=== PATIENT | male | born 1990 | race Caucasian/White ===

== ENCOUNTER 2017-04-06 11:22 | Emergency (ER) | payer OTHER ==
[2017-04-06 11:45] VITALS: RESP 16; TEMP 98.6
[2017-04-06] MEDS ORDERED: LORazepam 1 MG TAB PO ONE (13:30)
[2017-04-06 13:59] LABS: % IMMATURE GRANULYOCYTES 0.3 % (0.0-1.1); ABSOLUTE IMMATURE GRANULOCYTES 0.02 10^3/uL (0.00-0.10); ADD DIFF? NO; ADD MORPH? NO; ADD SCAN? NO; ATYPICAL LYMPHOCYTE FLAG 0 (0-99); FRAGMENT RBC FLAG 0 (0-99); HEMATOCRIT 48.7 % (40.0-51.0); HEMOGLOBIN 17.1 g/dL (13.7-17.5); LEFT SHIFT FLG 0 (0-99); LIPEMIA HEMOLYSIS FLAG 90 (0-99); MEAN CELL HEMOGLOBIN 30.3 pg (27.9-34.1); MEAN CELL HEMOGLOBIN CONCENTR. 35.1 g/dL (32.4-36.7); MEAN CELL VOLUME 86.3 fL (81.5-99.8); PLATELET CLUMPS FLAG 0 (0-99); PLATELET COUNT 262 10^3/uL (150-400); RED BLOOD CELL COUNT 5.64 10^6/uL (4.40-6.38); RED CELL DISTRIBUTION WIDTH 11.7 % (11.5-15.2)
--- NOTE | 2017-04-06 13:59 | CPEKG ---
Heart Rate: 83 RR Interval: 723 P-R Interval: 156 QRSD Interval: 92 QT Interval: 376 QTC Interval: 442 P Rawlings: 80 QRS Rawlings: 85 T Wave Rawlings: 34 EKG Severity - NORMAL ECG - EKG Impression: SINUS RHYTHM Electronically Signed By: Carroll Gerard 06-Apr-2017 15:02:59
[2017-04-06 14:10] LABS: COLOR PALE YELLOW; LEUKOCYTE ESTERASE,URINE NEGATIVE (NEGATIVE); NITRITE,URINE NEGATIVE (NEGATIVE)
[2017-04-06 14:27] LABS: ANION GAP 13 mEq/L (8-16); CALCIUM 10.3 mg/dL (8.5-10.4); CARBON DIOXIDE 26 mEq/l (22-31); CHLORIDE 102 mEq/L (97-110); CREATININE 0.9 mg/dL (0.7-1.3); GLOMERULAR FILTRATION RATE > 60; GLUCOSE 81 mg/dL (70-100); MAGNESIUM 2.2 mg/dL (1.6-2.3); POTASSIUM 4.5 mEq/L (3.5-5.2); SODIUM 141 mEq/L (134-144)
--- NOTE | 2017-04-06 15:08 | EDPHY ---
H & P Smoking Status: Never smoked Time Seen by Provider: 04/06/17 15:05 HPI/ROS: HPI: 26-year-old male presents with complaints of Chief Complaint: Elevated blood pressure Location: Cardiac Quality: Elevated blood pressure Duration: 2 weeks Signs and Symptoms: No chest pain, no palpitations, no orthopnea, no paroxysmal nocturnal dyspnea, no lower leg swelling, no nausea, no headache, no vomiting Timing: Intermittent Severity: Context: Patient is generally healthy. 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 He will be leaving soon to attend. And his girlfriend have been traveling the last couple weeks. They originally from [place]. For the last 3 weeks, patient has noted intermittent elevated blood pressure with a systolic blood pressure as high as 150 with associated symptom of "not feeling right." Patient was seen approximately 1 week ago in [place] ER, discharge summary was reviewed by myself showing workup of EKG with normal sinus rhythm, no pulmonary embolism, no electrolyte imbalance. He could be at rest when he feels this funny feeling. He is able to hike 5 miles at a time without difficulty. Patient denies feeling anxious. Denies caffeine use. Reports that he does not eat a lot of salt in his diet. No family history of cardiac problems. Modifying Factors: Comment: ROS: Eyes: No blurred vision Respiratory: No shortness of breath, no cough Cardiovascular: No chest pain Gastrointestinal: No nausea, no vomiting no diarrhea Genitourinary: No dysuria Extremities: No myalgias Neurologic: No weakness, no numbness Skin: No rashes Hematologic: No bruising, no bleeding MEDICAL/SURGICAL HISTORY: Generally healthy. Prior surgical history. (Sulema Abreu) Social History: In a relationship. (Sulema Abreu) Physical Exam: CONSTITUTIONAL: Extremely well-appearing adult white male, awake and alert, no obvious distress HEENT: Atraumatic and normocephalic, PERRL, EOMI. Tympanic membranes clear. Oropharynx clear, no exudate and moist pink mucosa. Airway patent. No lymphadenopathy. No meningismus. Cardiovascular: Normal S1/S2, regular rate, regular rhythm, without murmur rub or gallop. PULMONARY/CHEST: Symmetrical and nontender. Clear to auscultation bilaterally Good air movement. No accessory muscle usage. ABDOMEN: Soft, nondistended, nontender, no rebound, no guarding, no peritoneal signs, no masses or organomegaly. No CVAT. EXTREMITIES: 2/2 pulses, no deformities, no clubbing, no cyanosis or edema. NEUROLOGICAL: no focal neuro deficits. GCS 15. SKIN: Warm and dry, no erythema. no rash. Good capillary refill. (Sulema Abreu) Constitutional: Initial Vital Signs Temperature (C) 37.0 C 04/06/17 11:42 Heart Rate 95 04/06/17 11:42 Respiratory Rate 16 04/06/17 11:42 Blood Pressure 150/89 H 04/06/17 11:42 O2 Sat (%) 98 04/06/17 11:42 O2 Delivery Mode Room Air Allergies/Adverse Reactions: No Known Allergies Allergy (Unverified 04/06/17 11:41) Home Medications: Medication Instructions Recorded NK [No Known Home Meds] 04/06/17 Medical Decision Making - Diagnostics EKG Interpretation: 12 lead EKG: Indication: hypertension Rhythm: Normal sinus rhythm, rate 83 bpm [place]: Normal Intervals: Normal QRS: Normal ST segments: Normal INTERPRETATION: Normal EKG The 12 lead EKG was interpreted by myself. (Sulema Abreu) ED Course/Re-evaluation: EKG, labs Reassured patient that his blood pressures have been transient in nature. He is to follow up with his primary care provider upon return to [place]. Suspect anxiety component; p.o. Ativan given (Sulema Abreu) Differential Diagnosis: Differential diagnosis includes but is not limited to heart black, arrhythmias, pulmonary embolism, anemia, thyroid disease, pheochromocytoma, anxiety. (Sulema Abreu) - Data Points Laboratory Results: Laboratory Results 04/06/17 13:45 04/06/17 13:45 04/06/17 04/06/17 04/06/17 13:45 13:45 13:45 WBC 6.03 10^3/uL 10^3/uL (3.80-9.50) RBC 5.64 10^6/uL 10^6/uL (4.40-6.38) Hgb 17.1 g/dL g/dL (13.7-17.5) Hct 48.7 % % (40.0-51.0) MCV 86.3 fL fL (81.5-99.8) MCH 30.3 pg pg (27.9-34.1) MCHC 35.1 g/dL g/dL (32.4-36.7) RDW 11.7 % % (11.5-15.2) Plt Count 262 10^3/uL 10^3/uL (150-400) MPV 10.0 fL fL (8.7-11.7) Neut % (Auto) 76.0 % H % (39.3-74.2) Lymph % (Auto) 15.1 % % (15.0-45.0) [place] % (Auto) 8.0 % % (4.5-13.0) Eos % (Auto) 0.3 % L % (0.6-7.6) Baso % (Auto) 0.3 % % (0.3-1.7) Nucleat RBC Rel Count 0.0 % % (0.0-0.2) Absolute Neuts (auto) 4.58 10^3/uL 10^3/uL (1.70-6.50) Absolute Lymphs (auto) 0.91 10^3/uL L 10^3/uL (1.00-3.00) Absolute Monos (auto) 0.48 10^3/uL 10^3/uL (0.30-0.80) Absolute Eos (auto) 0.02 10^3/uL L 10^3/uL (0.03-0.40) Absolute Basos (auto) 0.02 10^3/uL 10^3/uL (0.02-0.10) Absolute Nucleated RBC 0.00 10^3/uL 10^3/uL (0-0.01) Immature Gran % 0.3 % % (0.0-1.1) Immature Gran # 0.02 10^3/uL 10^3/uL (0.00-0.10) Sodium 141 mEq/L mEq/L (134-144) Potassium 4.5 mEq/L mEq/L (3.5-5.2) Chloride 102 mEq/L mEq/L (97-110) Carbon Dioxide 26 mEq/l mEq/l (22-31) Anion Gap 13 mEq/L mEq/L (8-16) BUN 12 mg/dL mg/dL (7-23) Creatinine 0.9 mg/dL mg/dL (0.7-1.3) Estimated GFR > 60 Glucose 81 mg/dL mg/dL (70-100) Calcium 10.3 mg/dL mg/dL (8.5-10.4) Magnesium 2.2 mg/dL mg/dL (1.6-2.3) TSH 0.808 uIU/mL uIU/mL (0.465-4.680) Free T4 1.07 ng/dL ng/dL (0.59-2.19) Urine Color PALE YELLOW Urine Appearance HAZY Urine pH 8.0 H (5.0-7.5) Ur Specific [place] 1.009 (1.002-1.030) Urine Protein NEGATIVE (NEGATIVE) Urine Ketones NEGATIVE (NEGATIVE) Urine Blood NEGATIVE (NEGATIVE) Urine Nitrate NEGATIVE (NEGATIVE) Urine Bilirubin NEGATIVE (NEGATIVE) Urine Urobilinogen NEGATIVE EU EU (0.2-1.0) Ur Leukocyte Esterase NEGATIVE (NEGATIVE) Urine Glucose NEGATIVE (NEGATIVE) Medications Given: Discontinued Medications Lorazepam (Ativan) 1 mg PO EDNOW ONE Stop: 04/06/17 13:31 Last Admin: 04/06/17 13:39 Dose: 1 mg Departure - Departure Disposition: Home, Routine, Self-Care Clinical Impression: Elevated blood pressure reading Condition: Good Instructions: Low Sodium Diet (ED), Hypertension (ED) Additional Instructions: Take blood pressure readings once daily. Follow up with primary care provider upon her return to [place]. Referrals: NONE *PRIMARY CARE P,. [Primary Care Provider] - As per Instructions Sukhi Dillard MD [Medical Doctor] - As per Instructions
[2017-04-06 15:49] VITALS: BP 131/93; PULSE 81; O2SAT 97
== END 2017-04-06 15:51 | disposition home or self-care (01) ==
DX: R03.0 Elevated blood-pressure reading, without diagnosis of hypertension (principal)